=== PATIENT | female | born 1980 | race Caucasian/White ===

== ENCOUNTER 2020-10-17 08:11 | Outpatient (REF) | payer BC, SELFPAY ==
[2020-10-18 10:47] LABS: BV Int Neg Control Negative (Negative); BV Int Pos Control Positive (Positive)
[2020-10-19 17:00] LABS: HPV mRNA E6/E7 rflx Not Detected (Not Detected)
== END 2020-10-17 08:12 | disposition home or self-care (01) ==
LOC: HO.LAB 08:11
PROVIDERS: Visit Provider Advanced Practice Midwife
DX: Z01.411 Encounter for gynecological examination (general) (routine) with abnormal findings (principal); Z11.51 Encounter for screening for human papillomavirus (HPV); N89.8 Other specified noninflammatory disorders of vagina; N84.1 Polyp of cervix uteri
CPT/HCPCS: 87480; 87510; 87624; 87660; 88142

== ENCOUNTER 2021-01-11 07:59 | Outpatient (REF) | payer BC, SELFPAY ==
[2021-01-12 09:06] LABS: BV Int Neg Control Negative (Negative); BV Int Pos Control Positive (Positive)
== END 2021-01-11 08:00 | disposition home or self-care (01) ==
LOC: HO.LAB 07:59
PROVIDERS: Visit Provider Advanced Practice Midwife
DX: N89.8 Other specified noninflammatory disorders of vagina (principal)
CPT/HCPCS: 87480; 87510; 87660

== ENCOUNTER 2022-01-26 11:00 | Outpatient (REF) | payer BC, SELFPAY ==
[2022-01-27 15:00] LABS: BV Int Neg Control Negative (Negative); BV Int Pos Control Positive (Positive)
[2022-01-28 05:23] LABS: Follicle Stimulating Hormone 2.7 mIU/mL
== END 2022-01-26 11:01 | disposition home or self-care (01) ==
LOC: HO.LAB 11:00
PROVIDERS: Visit Provider Advanced Practice Midwife
DX: R23.2 Flushing (principal); N89.8 Other specified noninflammatory disorders of vagina
CPT/HCPCS: 36415; 83001; 87480; 87510; 87660

== ENCOUNTER 2022-02-13 15:10 | Outpatient (REF) | payer BC, SELFPAY ==
--- NOTE | ~2022-02-13 | MM_ITS ---
EXAMINATION: MM SCREENING DIGITAL BREAST TOMOSYNTHESIS, BILATERAL CLINICAL INFORMATION: Screening. Asymptomatic. No prior breast imaging. Age 41. No known family history breast cancer. The lifetime risk of breast cancer based on the Tyrer-Cuzick Model is 9%. COMPARISON: None (current study represents initial baseline exam). TECHNIQUE: Digital breast tomosynthesis is performed in both the craniocaudal and mediolateral oblique views along with computer-aided detection (CAD). Synthesized 2D images are generated from the tomosynthesis. FINDINGS: There are scattered areas of fibroglandular density (ACR BI-RADS breast composition Category b). There are no significant masses, abnormal calcifications, or other abnormalities. No architectural abnormality. The axilla and skin contours are unremarkable. MM/MM tomosynthesis screening BI IMPRESSION: No mammographic evidence of malignancy. ASSESSMENT: BI-RADS 1: Negative RECOMMENDATION: Routine annual mammography screening. This patient's information was entered into a reminder system with a target due date for their next mammogram.
== END 2022-02-13 15:11 | disposition home or self-care (01) ==
LOC: HO.MAMMO 15:10
PROVIDERS: PCP Nurse Practitioner Acute Care; Visit Provider Advanced Practice Midwife
DX: Z12.31 Encounter for screening mammogram for malignant neoplasm of breast (principal)
CPT/HCPCS: 77063; 77067

== ENCOUNTER → 2022-03-22 08:29 | Outpatient (BNVA) | payer BC, SELFPAY | PROVIDERS: PCP Nurse Practitioner Acute Care; Visit Provider Advanced Practice Midwife | DX: N84.1 Polyp of cervix uteri (principal); Z53.09 Procedure and treatment not carried out because of other contraindication; Z30.430 Encounter for insertion of intrauterine contraceptive device | CPT/HCPCS: 57500; 58300; 58301; J7296 ==

== ENCOUNTER 2022-04-25 08:58 | Outpatient (REF) | payer BC, SELFPAY | END 2022-04-25 08:59 | disposition home or self-care (01) | LOC: HO.LAB 08:58 | PROVIDERS: PCP Nurse Practitioner Acute Care; Visit Provider Advanced Practice Midwife | DX: N84.1 Polyp of cervix uteri (principal); Z30.431 Encounter for routine checking of intrauterine contraceptive device | CPT/HCPCS: 57500; 88305 ==

== ENCOUNTER 2023-02-18 14:53 | Outpatient (REF) | payer BC, SELFPAY ==
--- NOTE | ~2023-02-18 | MM_ITS ---
EXAMINATION: MM SCREENING DIGITAL BREAST TOMOSYNTHESIS, BILATERAL CLINICAL INFORMATION: Screening. Asymptomatic. COMPARISON: Mammography: This study is compared with prior exams dating back to 2021. TECHNIQUE: Digital breast tomosynthesis is performed in both the craniocaudal and mediolateral oblique views along with computer-aided detection (CAD). Synthesized 2D images are generated from the tomosynthesis. FINDINGS: The breasts are heterogeneously dense, which may obscure small masses (ACR BI-RADS breast composition Category c). There is an asymmetry in the 9:00 position of the right breast in the CC projection and an asymmetry in the deep third of the left breast in the posterior nipple line. Additional mammographic and targeted sonographic imaging of these findings is advised. There are no abnormal calcifications in either breast. MM/MM tomosynthesis screening BI IMPRESSION: Bilateral asymmetries warrant additional mammographic and targeted sonographic evaluation. ASSESSMENT: BI-RADS BI-RADS 0 - Incomplete: Needs additional Imaging. RECOMMENDATION: 1. Additional views of both breasts. 2. Targeted ultrasound if warranted after review of the additional views. 3. Radiology department staff will contact the patient for additional imaging. Additional Imaging required This examination should not preclude the clinical evaluation of a suspicious palpable abnormality. This patient's information was entered into a reminder system with a target due date for their next mammogram.
== END 2023-02-18 14:54 | disposition home or self-care (01) ==
LOC: HO.MAMMO 14:53
PROVIDERS: PCP Nurse Practitioner Acute Care; Visit Provider Advanced Practice Midwife
DX: Z12.31 Encounter for screening mammogram for malignant neoplasm of breast (principal)
CPT/HCPCS: 77063; 77067

== ENCOUNTER → 2023-02-18 15:15 | Outpatient (BNV) | payer BC, SELFPAY | PROVIDERS: PCP Nurse Practitioner Acute Care; Visit Provider Radiology Diagnostic Radiology | DX: Z12.31 Encounter for screening mammogram for malignant neoplasm of breast (principal) | CPT/HCPCS: 77063; 77067 ==

== ENCOUNTER 2023-03-15 10:27 | Outpatient (REF) | payer BC, SELFPAY ==
--- NOTE | ~2023-03-15 | MM_ITS ---
EXAMINATION: MM DIAGNOSTIC DIGITAL BREAST TOMOSYNTHESIS, BILATERAL CLINICAL INFORMATION: Diagnostic for asymmetry in the 9:00 position of the right breast the CC projection, and asymmetry in the deep third of the left breast in the posterior nipple line CC projection. COMPARISON: Mammography: Screening exam 02/18/2023, and dating back to 02/13/2022. TECHNIQUE: Digital breast tomosynthesis is performed. 2D images are generated from the tomosynthesis. The following views are obtained: 3-D spot compression right and left CC views, full-field 3-D left mediolateral view, full-field 3-D right mediolateral view. FINDINGS: The breasts are heterogeneously dense, which may obscure small masses (ACR BI-RADS breast composition Category c). Additional views demonstrate complete effacement of the focal asymmetries in the posterior aspects of both cc views. There is no persistent suspicious mass, clustered calcifications, or architectural distortion in either breast. There are 2 stable small circumscribed isodense nodules in the right breast just above the nipple line and along the nipple line, most likely cysts and stable from 2021. These appear benign. MM/MM tomosynthesis added view BI IMPRESSION: No findings suspicious for malignancy. Effacement of previously questioned asymmetries in both CC views posteriorly. Probable small cysts in the anterior right breast. These are unchanged. ASSESSMENT: BI-RADS BI-RADS 2 - Benign Findings RECOMMENDATION: 1 year F/U Results were provided to the patient at time of visit by the technologist. This patient's information was entered into a reminder system with a target due date for their next mammogram.
== END 2023-03-15 10:28 | disposition home or self-care (01) ==
LOC: HO.MAMMO 10:27
PROVIDERS: PCP Nurse Practitioner Acute Care; Visit Provider Advanced Practice Midwife
DX: N64.89 Other specified disorders of breast (principal)
CPT/HCPCS: 77062; 77066

== ENCOUNTER → 2023-03-15 10:30 | Outpatient (BNV) | payer BC, SELFPAY | PROVIDERS: PCP Nurse Practitioner Acute Care; Visit Provider Radiology Diagnostic Radiology | DX: R92.8 Other abnormal and inconclusive findings on diagnostic imaging of breast (principal) | CPT/HCPCS: 77062; 77066 ==

== ENCOUNTER 2023-07-04 09:00 | Outpatient (AMB) | payer BC, SELFPAY ==
--- NOTE | 2023-07-04 09:01 | MHC.OFFVIS ---
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 Doing well with no concerns. She tries to eat healthy and stays active with exercise. Currently is sexually active. No regular menses with the Mirena, report some increased vaginal discharge. STI screening offered; she declined. Adopted no FH. Last pap smear 2020, negative. Mammogram: UTD. Colonoscopy-planned this summer. [facility] Medical History (Updated 07/04/23 @ 09:32 by Joy Moya CNM) Anomaly of cerebellum Family History Unknown Adopted Social History (Updated 07/04/23 @ 09:10 by EYAD Simms) Household Members: Spouse and Children Housing: House Alcohol intake: current Alcohol intake frequency: a few times a month Patient Tobacco Use Status: Never used Tobacco Sexual orientation: Straight/Heterosexual Gender identity: Female Female Reproductive History Menstrual Age of Menarche: 13 control method: progestin IUCD (Kyleena 02/2022) Total pregnancies: 3 Full term: 3 Number of Living Children: 3 Ab spontaneous: 1 Multiple births: 1 Date of last pap smear: 10/17/20 (neg pap and hpv) Date of Mammogram: 03/15/23 (Birad 2) Review of Systems Const All systems reviewed & are unremarkable except as noted in HPI and below Reports as per HPI Eyes Reports no additional complaints ENT Reports no additional complaints Card Reports no additional complaints Resp Reports no additional complaints GI Reports as per HPI and Reports no additional complaints Reports as per HPI Musc Reports no additional complaints Skin/Breast Reports as per HPI Neuro Reports no additional complaints Psych Reports no additional complaints Endo Reports no additional complaints Zhen/Lymph Reports no additional complaints Aller/Immun Reports no additional complaints Physical Exam Vital Signs: Last Vital Signs BP 122/82 07/04/23 09:03 BMI result Body Mass Index 30.0 Const General: cooperative, healthy appearing, no acute distress, well developed and alert Orientation/consciousness: patient oriented x3 HEENT Head: Yes normal to inspection Eyes General: appearance normal, both eyes and all related structures Neck Neck: Yes normal visual inspection Thyroid: Thyroid normal Chest Chest palpation & inspection: normal inspection of the chest and other (no puckering, dimpling, peau de orange, retraction, discharge, masses) Breast/axilla inspection: normal inspection of the breasts Breast/axilla palpation: normal palpation of the breasts Resp Effort & Inspection: normal respiratory effort GI Inspection: Yes normal to inspection Palpation (GI): Soft to palpation Rectal Exam - Female: deferred General: Yes bladder normal to palpation External Female Exam: normal external appearance and normal appearance of the urethra Speculum Exam - Vagina: normal appearance of the vagina, normal palpation and abnormal vaginal discharge (thin) white Speculum Exam - Cervix: normal appearance of the cervix, normal palpation and Other cervical findings present (IUD strings present) Bimanual exam- vagina & uterus: normal bimanual exam, normal palpation, uterine size normal, bladder normal to palpation, normal palpation and non-tender Bimanual Exam- Adnexa, other: no masses Skin Other: dry, flat pink lesion with crusty center right breast at 6:00 General skin exam: no rashes or lesions noted Rashes: no rashes Neuro General: patient oriented x3 Cognition (Neuro): normal cognition Extrem General: Yes normal to inspection Psych Attitude: cooperative Thought process: Normal thought process present Assessment & Plan Assessment & Plan (1) Encounter for well woman exam with routine gynecological exam: Code(s): Z01.419 - Encounter for gynecological examination (general) (routine) without abnormal findings Plan Discussed: Current recommendations for pap smears per ASCCP guidelines. Breast awareness and periodic breast exams. Maintain a healthy lifestyle including a well balanced diet and routine exercise. Advised to see Dermatology, patient to check on her insurance plan for Dermatology options and will call or send a patient portal message for referral if needed. Await BV panel results for treatment plan. Mammogram yearly. Colonoscopy >45, or at risk sooner. Patient verbalizes understanding and agrees to the plan of care. She was given opportunity to ask questions and all questions were answered to the best of my ability. RTO in one year for annual computer aided design drafter examination. This note is constructed using voice recognition software. While every effort has been made to ensure accuracy, fisherman helper errors may have been included. Orders: Orders MM tomosynthesis screening BI Today Z12.31 - Encounter for screening mammogram for malignant neoplasm of breast Bacterial Vaginosis Panel Today N89.8 - Other specified noninflammatory disorders of vagina Coding Level of Care Code Est Pt Prev Care 40-64y(59456) Diagnoses Encounter for well woman exam with routine gynecological exam Z01.419
[2023-07-04 09:03] VITALS: BP 122/82
== END 2023-07-04 09:45 | disposition home or self-care (01) ==
PROVIDERS: PCP Nurse Practitioner Acute Care; Visit Provider Advanced Practice Midwife
DX: Z01.419 Encounter for gynecological examination (general) (routine) without abnormal findings (principal)
CPT/HCPCS: 99396

== ENCOUNTER 2023-07-04 09:00 | Outpatient (REF) | payer BC, SELFPAY ==
[2023-07-05 13:09] LABS: BV Int Neg Control Negative (Negative); BV Int Pos Control Positive (Positive)
== END 2023-07-04 09:01 | disposition home or self-care (01) ==
LOC: HO.LAB 09:00
PROVIDERS: PCP Nurse Practitioner Acute Care; Visit Provider Advanced Practice Midwife
DX: Z01.419 Encounter for gynecological examination (general) (routine) without abnormal findings (principal); N89.8 Other specified noninflammatory disorders of vagina
CPT/HCPCS: 87480; 87510; 87660

== ENCOUNTER 2024-02-19 15:22 | Outpatient (REF) | payer BC, SELFPAY | END 2024-02-19 15:23 | disposition home or self-care (01) | LOC: HO.MAMMO 15:22 | PROVIDERS: PCP Nurse Practitioner Acute Care; Visit Provider Advanced Practice Midwife | DX: Z13.89 Encounter for screening for other disorder (principal) ==

== ENCOUNTER 2024-02-25 10:14 | Outpatient (REF) | payer BC, SELFPAY ==
--- NOTE | ~2024-02-25 | MM_ITS ---
EXAMINATION: MM SCREENING DIGITAL BREAST TOMOSYNTHESIS, BILATERAL CLINICAL INFORMATION: Screening. Asymptomatic. COMPARISON: Mammography: Comparison is made with available priors TECHNIQUE: Digital breast mammography with tomosynthesis is performed in both the craniocaudal and mediolateral oblique views along with computer-aided detection (CAD). FINDINGS: The breasts are heterogeneously dense, which may obscure small masses (ACR BI-RADS breast composition Category c). Bilateral circumscribed oval masses which wax and wane consistent with benign fibrocystic changes. There are no significant masses, abnormal calcifications, or other abnormalities. MM/MM tomosynthesis screening BI IMPRESSION: No mammographic evidence of malignancy. ASSESSMENT: BI-RADS BI-RADS 2 - Benign Findings RECOMMENDATION: Routine annual mammography screening. 1 year F/U This examination should not preclude the clinical evaluation of a suspicious palpable abnormality. This patient's information was entered into a reminder system with a target due date for their next mammogram. Electronically signed by: Davina Henderson DO 03/02/2024 05:25 PM [facility]
== END 2024-02-25 10:15 | disposition home or self-care (01) ==
LOC: HO.MAMMO 10:14
PROVIDERS: PCP Nurse Practitioner Acute Care; Visit Provider Advanced Practice Midwife
DX: Z12.31 Encounter for screening mammogram for malignant neoplasm of breast (principal)
CPT/HCPCS: 77063; 77067

== ENCOUNTER → 2024-02-25 10:45 | Outpatient (BNV) | payer BC, SELFPAY | PROVIDERS: PCP Nurse Practitioner Acute Care; Visit Provider Internal Medicine | DX: Z12.31 Encounter for screening mammogram for malignant neoplasm of breast (principal) | CPT/HCPCS: 77063; 77067 ==

== ENCOUNTER 2024-07-09 12:29 | Outpatient (REF) | payer BC, SELFPAY ==
--- NOTE | ~2024-07-09 | US_ITS ---
EXAMINATION: US DIAGNOSTIC ULTRASOUND BREAST, RIGHTaxilla CLINICAL INFORMATION: Right axilla palpable lump. COMPARISON: Comparison is made with relevant prior imaging. TECHNIQUE: Ultrasound of the breast is performed with real-time pagan scale imaging and color Doppler. FINDINGS: Targeted color doppler ultrasound scanning in the area of the palpable lump in the right axilla demonstrates normal axillary tissue. There is no focal suspicious finding. There is normal fibroglandular breast tissue. No sonographic abnormality seen. Results are discussed with the patient at time of visit. US/US breast RT limited mamm only IMPRESSION: No sonographic abnormality to account for the right axillary palpable lump. Recommend clinical evaluation follow-up. ASSESSMENT: BI-RADS 1: Negative RECOMMENDATION: Clinical evaluation follow-up This patient's information was entered into a reminder system with a target due date for their next mammogram. Electronically signed by: Davina Henderson DO 07/09/2024 02:33 PM EDT
--- OUTSIDE RECORDS SUMMARY | 2024-07-09 15:14 | XMS_ITS | Clinical Summary ---
Author Organization [facility] Address [address] [place] [address] Care Team Providers Care Engineering And Operations Director Name Role Noxious Weeds And Pest InspectorConnor MD Primary Care Provider [phone] Social History Tobacco Use Types Packs/Day Years Used Date Smoking Tobacco: Never Smokeless Tobacco: Never Alcohol Use Standard Drinks/Week Comments No 0 (1 standard drink = 0.6 oz pur e alcohol) Comments Unknown Sex and Gender Information Value Date Recorded Sex Assigned at Not on file Legal Sex Female 1:54 AM EST Gender Identity Not on file Sexual Orientation Not on file Obstetrics History Plan of Treatment Health Maintenance Due Date Last Done Comments Breast Cancer Screening 1978 Cervical Cancer Screening: Pap Smear 1999 Hepatitis B Vaccines (2 of 3 - 19+ 3-dose series) 05/29/2004 05/01/2004 Colorectal Cancer Screening: Colonoscopy 04/28/2023 Depression Screening 04/28/2023 HIV Screening 04/28/2023 Hepatitis C Screening 04/28/2023 Social Influencers of Health Screening 04/28/2023 DTaP,Tdap,and Td Vaccines (2 - Td or Tdap) 11/03/2023 11/02/2013 COVID-19 Vaccine ( season) 2023 Influenza Vaccine (Season Ended) 2024 12/14/2016, 12/27/2014, 01/01/2007, Additional history exists HIB Vaccines Aged Out No longer eligi ble based on patient's age to complete this topic HPV Vaccines Aged Out No longer eligi ble based on patient's age to complete this topic Hepatitis A Vaccines Aged Out No long er eligible based on patient's age to complete this topic IPV Vaccines Aged Out No longer eligi ble based on patient's age to complete this topic MMR Vaccines Aged Out No longer eligi ble based on patient's age to complete this topic Meningococcal ACWY Vaccine Aged Out N o longer eligible based on patient's age to complete this topic Meningococcal B Vaccine Aged Out No l onger eligible based on patient's age to complete this topic Pneumococcal Vaccine: Pediatrics (0 to 5 Years) and At-Risk Patients (6 to 64 Years) Aged Out No longer eligible based on patient's age to complete this topic RSV Immunization Patients Under 20 months Aged Out No longer eligible based on patient's age to complete this topic Varicella Vaccines Aged Out No longer eligible based on patient's age to complete this topic Care Teams Engineering And Operations Director Relationship Specialty Start Date End Date Connor Garcia MD PCP - General 01/17/04
--- OUTSIDE RECORDS SUMMARY | 2024-07-09 15:14 | XMS_ITS | Encounter Summary ---
Author Organization [facility] Address [address] [place] [address] Care Team Providers Care Manager Cost Name Role Phone Fior Vera NATHANAEL Primary Care Provider [phone] Fior Vera NATHANAEL Unavailable [phone] Fior Vera NATHANAEL Unavailable [phone] Encounter Details Date Type Department Care Team (Late st Contact Info) Description 07/27/2023 Telephone [facility] [address] [place] [address] Shimon Booth PA-C [address] [place] [address] Social History Tobacco Use Types Packs/Day Years Used Date Smoking Tobacco: Never Smokeless Tobacco: Never Alcohol Use Standard Drinks/Week Comments Yes 1 (1 standard drink = 0.6 oz pur e alcohol) social AHC Utilities Answer Date Recorded In the past 12 months has [employer], [employer], oil, or water giftee threatened to shut off services in your home? No 05/29/2023 Social Connection and Isolat ion Panel [NHANES] Answer Date Recorded In a typical week, how many times do you talk on the phone with family, friends, or neighbors? More than three times a week 05/29/2023 How often do you get togethe r with friends or relatives? Three times a week 05/29/2023 How often do you attend [facility] or confucianist services? 1 to 4 times per year 05/29/2023 Do you belong to any clubs o r organizations such as protestant groups, unions, fraternal or athletic groups, or school groups? No 05/29/2023 How often do you attend meet ings of the clubs or organizations you belong to? Never 05/29/2023 Are you , , di vorced, , never , or living with a partner? 05/29/2023 AUDIT-C Answer Date Recorded Q1: How often do you have a drink containing alc ohol? 2-4 times a month 05/29/2023 Q2: How many drinks containi ng alcohol do you have on a typical day when you are drinking? 1 or 2 05/29/2023 Q3: How often do you have si x or more drinks on one occasion? Never 05/29/2023 Overall Financial Resource Strain (CARDIA) Answe r Date Recorded How hard is it for you to pa y for the very basics like food, housing, medical care, and heating? Not hard at all 05/29/2023 PHQ-2 Answer Date Recorded PHQ-2 Total Score 0 06/03/2023 [facility] - Occupational Stress Questionnaire Answer Date Recorded Do you feel stress - tense, restless, nervous, or anxious, or unable to sleep at night because your mind is troubled all the time - these days? Only a little 05/29/2023 Hunger Vital Sign Answer Date Recorded Within the past 12 months, y ou worried that your food would run out before you got the money to buy more. Never true 05/29/19 24 Within the past 12 months, t he food you bought just didn't last and you didn't have money to get more. Never true 05/29/2023 PRAPARE - Transportation Answer Date Re corded In the past 12 months, has l ack of transportation kept you from medical appointments or from getting medications? No 08/2023 In the past 12 months, has l ack of transportation kept you from meetings, work, or from getting things needed for daily living? No 05/29/2023 Physical Activity Answer Date Recorded On average, how many days pe r week do you engage in moderate to strenuous exercise (like a brisk walk)? 3 05/29/2023 On average, how many minutes do you exercise per day at this level? 40 05/29/2023 Education Answer Date Recorded What is the highest level of school you have completed or the highest degree you have received? Bachelor's degree (e.g., BA, AB, BS) 05/29/2023 Comments No Sex and Gender Information Value Date Recorded Sex Assigned at Female 12/11/2022 6:33 PM EDT Legal Sex Female 9:14 AM EDT Gender Identity Female 05/16/2020 1:42 PM EST Sexual Orientation Heterosexual (straight) 05/16 1:42 PM EST documented as of this encounter Plan of Treatment Upcoming Encounters Date Type Department Care Team (Late st Contact Info) Description 06/07/2025 8:00 AM EDT Office Visit [facility] [address] [place] [id number] Fior Vera APRN [address] [facility] [address] [place] [address] documented as of this encounter Visit Diagnoses Not on filedocumented in this encounter Care Teams Manager Cost Relationship Specialty Start Date End Date Fior Vera, NATHANAEL [address] [facility] [address] [place] [address] PCP - General Family Medicine 03/11/20 Fior Vera, NATHANAEL [address] [facility] [address] [place] [address] PCP - [facility] Attributed 07/24/23 02/22/24 Fior Vera APRN [address] [facility] [address] [place] [address] PCP - [facility] Attributed 03/25/24 documented as of this encounter
--- OUTSIDE RECORDS SUMMARY | 2024-07-09 15:14 | XMS_ITS | Encounter Summary ---
Author Organization [facility] Address [address] [place] [address] Care Team Providers Care Plc Programmer Name Role Phone Fior Vera APRN Primary Care Provider Cristina Chapman GARAGE CONSTRUCTION EQUIPMENT MECHANIC Unavailable [phone] Fior Vera Nelsy GARAGE CONSTRUCTION EQUIPMENT MECHANIC Unavailable Fior Vera GARAGE CONSTRUCTION EQUIPMENT MECHANIC Unavailable Reason for Visit * Reason Onset Date Comments Medication Refill 06/06/2023 Encounter Details Date Type Department Care Team (Late st Contact Info) Description 06/06/[address] [place] [address] [facility]NATHANAEL [facility] [address] [place], [place] [id number] Dyslipidemia Social History Tobacco Use Types Packs/Day Years Used Date Smoking Tobacco: Never Smokeless Tobacco: Never Alcohol Use Standard Drinks/Week Comments Yes 1 (1 standard drink = 0.6 oz pur e alcohol) social [facility]HC Utilities Answer Date Recorded In the past 12 months has [employer], gas, oil, or water company threatened to shut off services in your [...] week 05/29/2023 How often do you attend chur ch or rastafarian services? 1 to 4 times per year 05/29/2023 Do you belong to any clubs o r organizations such as hoahaoism groups, unions, fraternal or athletic groups, or [...] Date Recorded PHQ-2 Total Score 0 06/03/2023 [facility] - Occupational Stress Questionnaire Answer Date Recorded [...] Description 06/07/2025 8:00 AM EDT Office Visit [address] [address] Fior Vera APRN [address] [place] [id number] documented as of this encounter Visit Diagnoses Diagnosis Dyslipidemia Other and unspecified hyperlipidemia documented in this encounter Care Teams Plc Programmer Relationship Specialty Start Date End Date Fior Vera APRN [address] [address] PCP - General Family Medicine 03/11/20 Cristina Chapman APRN [address] [place] [address] PCP - [facility] [employer] Attributed 12/23/22 06/23/23 Fior Vera APRN [address] [address] PCP - [facility] [employer] Attributed 07/24/23 02/22/24 Fior Vera APRN [address] [facility] [address] [place] [address] PCP - [facility] Attributed 03/25/24 documented as of this encounter
--- OUTSIDE RECORDS SUMMARY | 2024-07-09 15:14 | XMS_ITS | Clinical Summary ---
Author Organization [facility] Address [address] [place] [address] Care Team Providers Care Histologist Technologist Name Role Phone Unavailable Primary Care Provider Unavailabl e Allergies Active Allergy Reactions Criticality Noted Date Comments Metronidazole 11/29/2019 Nuts 11/29/2019 Penicillins 11/29/2019 Medications Medication Sig Dispensed Refills Start Date End Date Status acetaminophen (TYLENOL) 325 MG tablet Take 2 tablets (650 mg total) by mouth every 6 (six) hours as needed for pain. 120 tablet 0 03/07/2020 Active ibuprofen (ADVIL,MOTRIN) 200 MG tablet Take 4 tablets (800 mg total) by mouth every 6 (six) hours as needed for pain. 30 tablet 0 03/07/2020 Active butalbital-acetamino phen-caffeine 50-325-40 MG per tablet Take 1 tablet by mouth every 4 (four) hours as needed for pain. 10 tablet 0 07/26/2022 Active Active Problems No known active problems Social History Tobacco Use Types Packs/Day Years Used Date Smoking Tobacco: Never Smokeless Tobacco: Never Alcohol Use Standard Drinks/Week Comments No 0 (1 standard drink = 0.6 oz pur e alcohol) Sex and Gender Information Value Date Recorded Sex Assigned at Female 11/29/2019 5:03 PM EDT Gender Identity Female 11/29/2019 5:03 PM EDT Sexual Orientation Not on file Job Start Date Occupation Industry Not on file Not on file Not on file Last Filed Vital Signs Vital Sign Reading Time Taken Comments Blood Pressure 146/86 07/26/2022 9:38 PM EDT Pulse 101 07/26/2022 9:38 PM EDT Temperature 36.7 ??C (98.1 ??F) 07/26/2022 9:38 PM ED T Respiratory Rate 20 07/26/2022 9:38 PM EDT Oxygen Saturation 99% 07/26/2022 9:38 PM EDT Inhaled Oxygen Concentration - - Weight 81.6 kg (180 lb) 07/26/2022 9:38 PM EDT Height 162.6 cm (5' 4 ) 07/26/2022 9:38 PM EDT Body Mass Index 30.9 07/26/2022 9:38 PM EDT Plan of Treatment Health Maintenance Due Date Last Done Comments Hepatitis C Screening 1978 COVID-19 Vaccine (#1) 1978 Depression Screening 1990 BMI Counseling 1996 Preventative Health Evaluation 1996 Cervical Cancer Screening (Pap Smear) 1999 Hepatitis B Vaccines (2 of 2 - CpG 2-dose series) 05/29/2004 05/01/2004, 05/01/2004 Colon Cancer Screening (Colonoscopy) 2023 DTap / Tdap / Td (3 - Td or Tdap) 11/03/2023 11/02/2013, 05/01/2004 Influenza Vaccine (#1) 2023 0, 12/28/2018, 01/09/2018, Additional history exists Pneumococcal Vaccine Aged Out No long er eligible based on patient's age to complete this topic RSV Ped < 20 months Aged Out No longe r eligible based on patient's age to complete this topic
--- OUTSIDE RECORDS SUMMARY | 2024-07-09 15:14 | XMS_ITS | Encounter Summary ---
Author Organization [facility] Address [address] [place] [address] Care Team Providers Care Wafer Production Worker Name Role Phone ChyuFior NATHANAEL Primary Care Provider [phone] Cristina Chapman WATERSHED PROGRAM MANAGER Unavailable [phone] Fior Vera WATERSHED PROGRAM MANAGER Unavailable [phone] Fior Vera WATERSHED PROGRAM MANAGER Unavailable [phone] Encounter Details Date Type Department Care Team (Late st Contact Info) Description 06/03/2023 Scanned Document [address] [place] [address] Primary Care, Scan Social History Tobacco Use Types Packs/Day Years Used Date Smoking Tobacco: Never Smokeless Tobacco: Never Alcohol Use Standard Drinks/Week Comments Yes 1 (1 standard drink = 0.6 oz pur e alcohol) social AHC Utilities Answer Date Recorded In the past 12 months has [employer] gas, oil, or water company threatened to [...] 05/29/2023 How often do you attend chur or jehovah's witness services? 1 to 4 times per year 05/29/2023 Do you belong to any clubs o r organizations such as mandaen groups, unions, fraternal or athletic groups, or [...] Date Recorded PHQ-2 Total Score 0 06/03/2023 [facility] - Occupational Stress Questionnaire Answer Date [...] PM EST documented as of this encounter Functional Status * Question Answer Date of Assessment Author Feeling nervous, anxious, or on edge 0 06/03/2023 10:33 AM EDT Tonya Mcintosh MA Not being able to stop or control worrying 0 06/03/2023 10:33 AM ADAMT Tonya Mcintosh MA Worrying too much about different things 0 06/03/2023 10:33 AM EDT Tonya Mcintosh MA Trouble relaxing 0 06/03/2023 10:33 AM EDT Raquel Mcintosh MA Being so restless that it is hard to sit still 0 06/03/2023 10:33 AM EDT Tonya Mcintosh MA Becoming easily annoyed or irritable 1 06/03/2023 10:33 AM Tonya Millard MA Feeling afraid as if somethi ng awful might happen 0 06/03/2023 10:33 AM ADAMT Tonya Mcintosh MA * Over the past 2 weeks, how often have you been bothered by any of the following problems? Question Answer Date of Assessment Author Patient Health Questionnaire -2 Score 0 06/03/2023 10:33 AM EDTonya De Anda MA * Question Answer Date of Assessment Author Patient Health Questionnaire -9 Score 2 06/03/2023 10:33 AM Tonya Millard MA * Over the last 2 weeks, how often have you been bothered by any of the following problems? Question Answer Date of Assessment Author AVI-7 Total Score 1 06/03/2023 10:33 AM Raquel Millard MA * Question Answer Date of Assessment Author Little interest or pleasure in doing things Not at all 06/03/2023 10:33 AM EDT Raquel Mcintosh MA Feeling down, depressed, or hopeless Not at all 06/03/2023 10:33 AM Raquel Millard MA Trouble falling or staying asleep, or sleeping too much Several days 06/03/2023 10:33 AM Raquel Millard MA Feeling tired or having little energy Several days 06/03/2023 10:33 AM Raquel Millard MA Poor appetite or overeating Not at all 06/03/2023 10:33 AM ADAMT Raquel Mcintosh MA Feeling bad about yourself - or that you are a failure or have let yourself or your family down Not at all 06/03/2023 10:33 AM Raquel Millard MA Trouble concentrating on things, such as reading the newspaper or watching television Not at all 06/03/2023 10:33 AM Raquel Millard MA Moving or speaking so slowly that other people could have noticed? Or the opposite - being so fidgety or restless that you have been moving around a lot more than usual. Not at all 06/03/2023 10:33 AM Raquel Millard MA Thoughts that you would be better off or hurting yourself in some way Not at all 06/03/2023 10:33 AM Raquel Millard MA How difficult have these problems made it for you to do your work, take care of things at home, or get along with other people? Not difficult at all 06/03/2023 10:33 AM Raquel Millard MA documented as of this encounter Plan of Treatment Upcoming Encounters Date Type Department Care Team (Late st Contact Info) Description 06/07/2025 8:00 AM EDT Office Visit [address] [place] [address] Fior Vera APRN [address] [place] [address] documented as of this encounter Visit Diagnoses Not on filedocumented in this encounter Care Teams Wafer Production Worker Relationship Specialty Start Date End Date Fior Vera APRN [address] [address] PCP - General Family Medicine 03/11/20 Cristina Chapman APRN [address] [place] [address] PCP - [place] [employer] Attributed 12/23/22 06/23/23 Fior Vera APRN [address] [address] PCP - [place] [employer] Attributed 07/24/23 02/22/24 Fior Vera APRN [address] [address] PCP - [place] [employer] Attributed 03/25/24 documented as of this encounter
--- OUTSIDE RECORDS SUMMARY | 2024-07-09 15:14 | XMS_ITS ---
Author Name [facility] Organization Unknown Results Test Name/Text Value Interpretation Date Range Source TSH SerPl-aCnc 2.45mIU/L Normal [id number] QU EST BUN/Creat SerPl SEE NOTE: Normal [id number] 6 - 22 Q [facility] Glucose SerPl-mCnc 98mg/dL Normal [id number] 65 - 99 [facility] Calcium SerPl-mCnc 8.9mg/dL Normal [id number] 8.6 - 10 .2 [facility] Creat SerPl-mCnc 0.89mg/dL Normal [id number] 0.5 - 0.99 [facility] eGFRcr SerPlBld CKD-EPI 2020 81mL/min/1.73m2 Normal [id number] - [facility] CO2 SerPl-sCnc 26mmol/L Normal [id number] 20 - 32 QU EST BUN SerPl-mCnc 11mg/dL Normal [id number] 7 - 25 QU EST Sodium SerPl-sCnc 137mmol/L Normal [id number] 135 - 146 [facility] Chloride SerPl-sCnc 104mmol/L Normal [id number] 98 - 11 0 [facility] Potassium SerPl-sCnc 4.4mmol/L Normal [id number] 3.5 - 5.3 [facility] MCHC RBC Auto-EntMCnc 33.3g/dL Normal [id number] 32 - 36 [facility] RBC # Bld Auto 5.03Million/uL Normal [id number] 3.8 - 5 .1 [facility] MCH RBC Qn Auto 29.2pg Normal [id number] 27 - 33 Q [facility] RBC Auto 87.7fL Normal [id number] 80 - 100 [facility] Platelet # Bld Auto 305Thousand/uL Normal [id number] 14 0 - 400 [facility] Hct VFr Bld Auto 44.1% Normal [id number] 35 - 45 [facility] WBC # Bld Auto 4Thousand/uL Normal [id number] 3.8 - 10. 8 [facility] Hgb Bld-mCnc 14.7g/dL Normal [id number] 11.7 - 15.5 QU EST RDW RBC Auto 12.4% Normal [id number] 11 - 15 [facility] T PMV Bld Wilson-Elana 11.3fL Normal [id number] 7.5 - 12 .5 [facility] AST SerPl-cCnc 10U/L Normal [id number] 10 - 35 QU EST ALT SerPl-cCnc 9U/L Normal [id number] 6 - 29 QU EST HbA1c MFr Bld 5.1%oftotalHgb Normal [id number] - 5.7 [facility] Est. average glucose Bld gHb Est-sCnc 5.5mmol/L Normal [id number] [facility] Est. average glucose Bld gHb Est-mCnc 100mg/dL Normal [id number] [facility] History of Medication Use Medication Directions Dispensed Refills Start Date End Date Stat Cholecalciferol (VITAMIN D-3 PO) Take by mouth. acti ve clotrimazole-betametha sone (LOTRISONE) cream Apply topically 2 (two) times a day. 06/03/2024 active tiZANidine (ZANAFLEX) 2 MG tablet Take 1 tablet (2 mg total) by mouth 3 (three) times a day. 01/15/2023 04/16/2023 active butalbital-acetaminoph en-caffeine (FioriCET, ESGIC) 50-325-40 mg tablet Take 1 tablet by mouth 4 times daily (every 6 hours) as needed for headaches. Max: 6 capsules/tablets in 24 hours 07/26/2022 09/03/2023 active indomethacin (INDOCIN) 50 MG capsule Take 1 capsule as needed, with food; limit to no more than 2-3 days per week 12/13/2022 12/28/2022 aborted naproxen sodium (ANAPROX) 550 MG tablet Take 1 tablet (550 mg total) by mouth 2 (two) times a day with meals. Take with meals or food to reduce stomach upset. 11/19/2022 12/03/2022 active niacin (VITAMIN B-3) 250 MG CR capsule 750 mg. 06/28/2023 active naratriptan (AMERGE) 2.5 MG tablet Take 1 tablet (2.5 mg total) by mouth 2 (two) times a day. 10/31/2022 11/06/2022 aborted ondansetron (ZOFRAN-ODT) 4 MG disintegrating tablet Take 1 tablet (4 mg total) by mouth 2 times daily (every 12 hours) as needed for nausea or vomiting. Place tablet on tongue to dissolve. 10/31/2022 active Problems Problem Status Onset Date Problem Type Date of Resoluti on Source Cervical disc herniation active 2023-01-14 [facility] Hypercholesteremia active 2024-06-03 ProblemAct [facility] Occipital neuralgia of left side active 2023-01-14 ProblemAct [facility] Cervical spondylosis active 2023-01-14 ProblemAct [facility] New onset of headaches active 2022-09-02 ProblemAct [facility] Immunizations Vaccine Date Source Lot Number Status Hepatitis B Adjuvanted, 2 Dose 05/01/2004 [facility] completed DT 05/01/2004 [facility] completed Influenza, Unspecified 12/08/2019 [facility] co mpleted Influenza, Unspecified 12/27/2014 [facility] co mpleted Influenza, Unspecified 12/14/2016 [facility] co mpleted Tdap 11/02/2013 [facility] [id number] completed Influenza, Unspecified 01/10/2005 [facility] co mpleted Tdap 06/03/2024 [facility] [id number] completed Influenza, Unspecified 01/01/2007 [facility] [id number] co mpleted Influenza Inactivated/Split Preservative Free IM 12/28/2018 [facility] completed Influenza Inactivated/Split Preservative Free IM 01/09/2018 [facility] completed Influenza Inactivated/Split Preservative Free IM 12/20/2019 [facility] completed Encounters Encounter Type Encounter Reason Primary Diagnosis Location Date Ambulatory Annual Exam Annual Exam [facility] 06/03/2024 Ambulatory Unspecified symptoms and signs involving the genitourinary system Unspecified symptoms and signs involving the genitourinary system [facility] 11/26/2023 Ambulatory [facility] 09/20/2023 Ambulatory Periorbital cellulitis Periorbital cellulitis [facility] 07/24/2023 Ambulatory Hyperlipidemia, unspecified Hyperlipidemia, unspecified [facility] 06/03/2023 Ambulatory Periorbital cellulitis Periorbital cellulitis [facility] 04/08/2023 Ambulatory Cervicalgia Cervicalgia [facility] 02/20/2023 Ambulatory Spondylosis without myelopathy or radiculopathy, 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, cervical region [facility] 01/14/2023 Ambulatory Headache, unspecified Headache, unspecified [facility] 12/13/2022 Ambulatory Headache, unspecified Headache, unspecified [facility] 10/31/2022 Ambulatory Headache, unspecified [facility] 08/30/2022 Ambulatory Personal history of other diseases of the nervous system and sense organs [facility] 07/30/2022 Ambulatory Pure hypercholesterolemia , unspecified [facility] 05/30/2022 Care Team Organization Name Specialty Phone Email Start Date End [facility] te [facility] 09/19/2023 [facility] 09/19/2023 [facility] 01/24/2023 024 [facility] Fior Vera [facility] 05/30/2022 07/08/2024 [facility] Fior Vera NP Primary Care 04/12/2021 023
--- OUTSIDE RECORDS SUMMARY | 2024-07-09 15:14 | XMS_ITS | Encounter Summary ---
Author Organization [facility] Address [address] [place] [address] Care Team Providers Care Public Health Physician Name Role Phone ChuyFior NATHANAEL Primary Care Provider [phone] Cristina Chapman HIGH SCHOOL SPECIAL EDUCATION TEACHER Unavailable [phone] Fior Vera HIGH SCHOOL SPECIAL EDUCATION TEACHER Unavailable [phone] Fior Vera HIGH SCHOOL SPECIAL EDUCATION TEACHER Unavailable [phone] Encounter Details Date Type Department Care Team (Late st Contact Info) Description 06/03/2023 Scanned Document [address] [place] [phone] Primary Care, Scan Social History Tobacco Use Types Packs/Day Years Used Date Smoking Tobacco: Never Smokeless Tobacco: Never Alcohol Use Standard Drinks/Week Comments Yes 1 (1 standard drink = 0.6 oz pur e alcohol) social AHC Utilities Answer Date Recorded In the past 12 months has [employer], gas, oil, or water company threatened to [...] How often do you attend chur or roman catholic services? 1 to 4 times per year 05/29/2023 Do you belong to any clubs o r organizations such as caodaism groups, unions, fraternal or athletic groups, or [...] Date Recorded PHQ-2 Total Score 0 06/03/2023 [facility] - Occupational Stress Questionnaire Answer Date Recorded [...] Description 06/07/2025 8:00 AM EDT Office Visit [address] [place] [address] Fior Vera APRN [address] [place] [address] documented as of this encounter Visit Diagnoses Not on filedocumented in this encounter Care Teams Public Health Physician Relationship Specialty Start Date End Date Fior Vera APRN [address] [address] PCP - General Family Medicine 03/11/20 Cristina Chapman APRN [address] [place] [address] PCP - [place] Commercial Attributed 12/23/22 06/23/23 Fior Vera APRN [address] [address] PCP - [place] [employer] Attributed 07/24/23 02/22/24 Fior Vera APRN [address] [address] PCP - [place] [employer] Attributed 03/25/24 documented as of this encounter
--- OUTSIDE RECORDS SUMMARY | 2024-07-09 15:14 | XMS_ITS | Encounter Summary ---
Author Organization [facility] Address [address] [place] [address] Care Team Providers Care Internal Affairs Investigator Name Role Phone ChuyFior NATHANAEL Primary Care Provider [phone] Fior Vera NATHANAEL Unavailable [phone] Fior Vera NATHANAEL Unavailable [phone] Encounter Details Date Type Department Care Team (Late st Contact Info) Description 11/26/2023 Scanned Document [address] [place] [address] Provider, Generic Social History Tobacco Use Types Packs/Day Years Used Date Smoking Tobacco: Never Smokeless Tobacco: Never Alcohol Use Standard Drinks/Week Comments Yes 1 (1 standard drink = 0.6 oz pur e alcohol) social C Utilities Answer Date Recorded In the past 12 months has [employer], gas, oil, or water company threatened [...] often do you attend chur ch or catholic services? 1 to 4 times per year 05/29/2023 Do you belong to any clubs o r organizations such as zoroastrianism groups, unions, fraternal or athletic groups, or [...] Date Recorded PHQ-2 Total Score 0 06/03/2023 [facility]at ional Health - Occupational Stress [...] Description 06/07/2025 8:00 AM EDT Office Visit [facility] [address] [place] [address] Fior Vera APRN [address] [place] [address] documented as of this encounter Visit Diagnoses Not on filedocumented in this encounter Care Teams Internal Affairs Investigator Relationship Specialty Start Date End Date Fior Vera APRN [address] [address] PCP - General Family Medicine 03/11/20 Fior Vera APRN [address] [place] [address], [place] [address] PCP - [place] Commercial Attributed 07/24/23 02/22/24 Fior Vera APRN [address] [address] PCP - [place] Commercial Attributed 03/25/24 documented as of this encounter
--- OUTSIDE RECORDS SUMMARY | 2024-07-09 15:14 | XMS_ITS | Encounter Summary ---
Author Organization [facility] Address [address] [place] [address] Care Team Providers Care Insurance Coordinator Name Role Phone Fior Vera NATHANAEL Primary Care Provider [phone] Fior Vera NATHANAEL Unavailable [phone] Fior Vera NATHANAEL Unavailable [phone] Encounter Details Date Type Department Care Team (Late st Contact Info) Description 09/19/2023 Scanned Document [facility] [address] [place] [address] Neurology, Scan Social History Tobacco Use Types Packs/Day Years Used Date Smoking Tobacco: Never Smokeless Tobacco: Never Alcohol Use Standard Drinks/Week Comments Yes 1 (1 standard drink = 0.6 oz pur e alcohol) social AHC Utilities Answer Date Recorded In the past 12 months has [employer], gas, oil, or water [employer] threatened to shut off services in your [...] often do you attend chur ch or rastafari services? 1 to 4 times per year 05/29/2023 Do you belong to any clubs o r organizations such as presybeterian groups, unions, fraternal or athletic groups, or [...] Date Recorded PHQ-2 Total Score 0 06/03/2023 [facility] Occupat ional Health - Occupational [...] Description 06/07/2025 8:00 AM EDT Office Visit [facility] [address] [place] [address] Fior Vera APRN [address] [address] documented as of this encounter Visit Diagnoses Not on filedocumented in this encounter Care Teams Insurance Coordinator Relationship Specialty Start Date End Date Fior eVra APRN [address] [address] PCP - General Family Medicine 03/11/20 Fior Vera, NATHANAEL [address] [place] [address] PCP - [place] [employer] Attributed 07/24/23 02/22/24 Fior Vera, NATHANAEL [address] [address] PCP - [place] [employer] Attributed 03/25/24 documented as of this encounter
--- OUTSIDE RECORDS SUMMARY | 2024-07-09 15:14 | XMS_ITS | Encounter Summary ---
Author Organization [facility] Address [address] [place] [address] Care Team Providers Care Bran Mixer Name Role Phone [address] Court HouseFior horn NATHANAEL Primary Care Provider Fior Vera COMPRESSOR STATION ENGINEER CHIEF Unavailable [phone] GabykelliCristina Marshal COMPRESSOR STATION ENGINEER CHIEF Unavailable [phone] Fior Vera COMPRESSOR STATION ENGINEER CHIEF Unavailable [phone] Fior Vera COMPRESSOR STATION ENGINEER CHIEF Unavailable [phone] Encounter Details Date Type Department Care Team (Late st Contact Info) Description 11/08/2022 Scanned Document [facility] Neurology, Scan Social History Tobacco Use Types Packs/Day Years Used Date Smoking Tobacco: Never Smokeless Tobacco: Never Alcohol Use Standard Drinks/Week Comments Yes 0 (1 standard drink = 0.6 oz pur e alcohol) social AUDIT-C Answer Date Recorded Frequency of Alcohol Consumption Never 09/28/2018 Average Number of Drinks Not on file 019 Frequency of Binge Drinking Not on file 09/2018 PHQ-2 Answer Date Recorded PHQ-2 Total Score 1 10/31/2022 [facility] of Occupat ional Health - Occupational Stress Questionnaire Answer Date Recorded Do you feel stress - tense, restless, nervous, or anxious, or unable to sleep at night because your mind is troubled all the time - these days? To some extent 10/31/2022 Physical Activity Answer Date Recorded Days of Exercise per Week 3 days 2022 Minutes of Exercise per Session 20 min 10/31/2022 Comments No Sex and Gender Information Value [...] Description 06/07/2025 8:00 AM EDT Office Visit [facility] [address] [place] [address] Fior Vera APRN [address] [place] [address] documented as of this encounter Visit Diagnoses Not on filedocumented in this encounter Care Teams Bran Mixer Relationship Specialty Start Date End Date Fior Vera APRN [address] [address] PCP - General Family Medicine 03/11/20 Fior Vera APRN [address] [place] [address] PCP - [place] Commercial Attributed 07/23/20 12/22/22 Cristina Chapman APRN [address] [place] [id number] PCP - [place] Commercial Attributed 12/23/22 06/23/23 Fior Vera APRN [address] [address] PCP - [place] Commercial Attributed 07/24/23 02/22/24 Fior Vera APRN [address] [address] PCP - [place] Commercial Attributed 03/25/24 documented as of this encounter
--- OUTSIDE RECORDS SUMMARY | 2024-07-09 15:14 | XMS_ITS | Clinical Summary ---
Author Organization Formerly [facility] Address [address] [place] [address] Care Team Providers Care Estimator Paperboard Boxes Name Role Phone Fior Vera APRN Primary Care Provider [phone] Fior Vera APRN Unavailable [phone] Allergies Active Allergy Reactions Criticality Noted Date Comments Atorvastatin Myalgia/Myositis/Art hralgia/Arthri tis Low 07/30/2022 Metronidazole Rash/Dermatitis Low 09/28/2018 Rimegepant Sulfate Hives Medium 12/11/2022 Nuts Anaphylaxis High 09/28/2018 Penicillins Hives Medium 09/28/2018 Triptans Rash/Dermatitis Low 11/05/2022 Medications multivitamin Tab tablet Take 1 tablet by mouth daily. Active ondansetron (ZOFRAN-ODT) 4 MG disintegrating tabletIndications: Nausea Take 1 tablet (4 mg total) by mouth 2 times daily (every 12 hours) as needed for nausea or vomiting. Place tablet on tongue to dissolve. 15 tablet 3 3 Active indomethacin (INDOCIN) 50 MG capsuleIndications :Intractable headache, unspecified chronicity pattern, unspecified headache type Take 1 capsule (50 mg total) by mouth 2 (two) times a day with meals. As needed, no more than 2-3 days per week 30 capsule 3 3 Active tiZANidine (ZANAFLEX) 2 MG tabletIndications: Cervical disc herniation,Muscle spasms of neck Take 1 tablet (2 mg total) by mouth 3 (three) times a day. 270 tablet 3 Active polyethylene glycol-electrolyte s (PLENVU) 140 g solutionIndication s:Colon cancer screening Take as directed. 1 each 4 Active Angle Inlet-3 Fatty Acids (FISH OIL PO) Take by mouth. Active Cholecalciferol (VITAMIN D-3 PO) Take by mouth. Active EPINEPHrine 0.3 mg/0.3 mL IJ auto-injectionIndi cations:History of multiple allergies Inject 0.3 mL (0.3 mg total) into the thigh once as needed for allergic reaction. 2 each 5 Active clotrimazole-betam ethasone (LOTRISONE) creamIndications:M ass of right axilla Apply topically 2 (two) times a day. 45 g 5 Active Active Problems Problem Noted Date Diagnosed Date Hypercholesteremia 06/03/2024 Cervical spondylosis 01/14/2023 Cervical disc herniation 01/14/2023 Occipital neuralgia of left side 01/14/2023 New onset of headaches 09/02/2022 Encounters Date Type Department Care Team Description 06/16/2024 Orders Only [address] [phone] Fior Vera APRN Mass of right axilla (Primary Dx) 06/11/2024 Telephone [facility] [address] [place] [address] Keshai Paulino MA 06/05/2024 Telephone [facility] [address] [place] [address] Keshia Paulino MA Referral 06/03/2024 8:45 AM EDT Office Visit [address] [phone] Fior Vera APRN Mass of right axilla (Primary Dx); Routine medical exam; Hypercholesteremia; Colon cancer screening; Skin lesion; Need for tetanus booster; History of multiple allergies 06/03/2024 Travel from Last 3 Months Immunizations Immunization Administration Dates Next Due DT 05/01/2004 Hepatitis B Adjuvanted, 2 Dose 05/01/2004 Influenza Inactivated/Split Preservative Free IM 12/20/2019,12/28/2018,01/09/2018 Influenza, Unspecified 12/08/2019,2016,12/27/2014,2006,01/10/2005 Tdap 06/03/2024,11/02/2013 Social History Tobacco Use Types Packs/Day Years Used Date Smoking Tobacco: Never Smokeless Tobacco: Never Tobacco Cessation:Counseling Given: Not Answered Alcohol Use Standard Drinks/Week Comments Yes 1 (1 standard drink = 0.6 oz pur e alcohol) social C Utilities Answer Date Recorded In the past 12 months has th e electric, gas, oil, or water [employer] threatened to shut off services in your home? No 06/01/2024 Social Connection and Isolation Panel [NHANES] A nswer Date Recorded In a typical week, how many times do you talk on the phone with family, friends, or neighbors? Three times a week 06/01/2024 Frequency of Social Gatherin gs with Friends and Family Not on file 06/01/2024 Attends Faith Services Not on file 06/01 Active Member of Clubs or Organizations Not on f ile 06/01/2024 Attends Club or Organization Meetings Not on daniel e 06/01/2024 Marital Status Not on file 06/01/2024 AUDIT-C Answer Date Recorded Q1: How often do you have a drink containing alc ohol? Monthly or less 06/01/2024 Q2: How many drinks containi ng alcohol do you have on a typical day when you are drinking? 1 or 2 06/01/2024 Frequency of Binge Drinking Not on file 05/23 Overall Financial Resource Strain (CARDIA) Answe r Date Recorded How hard is it for you to pa y for the very basics like food, housing, medical care, and heating? Not hard at all 05/29/2023 PHQ-2 Answer Date Recorded PHQ-2 Total Score 0 06/01/2024 [facility] [place] of Occupat ional Health - Occupational Stress [...] the money to buy more. Never true 06/02/19 25 Within the past 12 months, t he food you bought just didn't last and you didn't have money to get more. Never true 06/01/2024 PRAPARE - Transportation Answer Date Re corded In the past 12 months, has l ack of transportation kept you from medical appointments or from getting medications? No 05/23 In the past 12 months, has l ack of transportation kept you from meetings, work, or from getting things needed for daily living? No 06/01/2024 Housing Stability Vital Sign Answer Amadou e Recorded In the last 12 months, was t here a time when you were not able to pay the mortgage or rent on time? Patient declined 06/02/19 In the past 12 months, how m any times have you moved where you were living? 0 06/01/2024 At any time in the past [address] [facility], were you homeless or living in a nursing home (including now)? No 06/01/2024 Physical Activity Answer Date Recorded On average, how many days pe r week do you engage in moderate to strenuous exercise (like a brisk walk)? 1 day 06/01/2024 On average, how many minutes do you exercise per day at this level? 20 min 06/01/2024 Education Answer Date Recorded What is the [...] Orientation Heterosexual (straight) 05/16 1:42 PM EST Last Filed Vital Signs Vital Sign Reading Time Taken Comments Blood Pressure 112/80 06/03/2024 8:54 AM EDT Pulse 78 06/03/2024 8:54 AM EDT Temperature 36.3 ??C (97.3 ??F) 06/03/2024 8:54 AM ED T Respiratory Rate 18 06/03/2024 8:54 AM EDT Oxygen Saturation 99% 06/03/2024 8:54 AM EDT Inhaled Oxygen Concentration - - Weight 80.3 kg (177 lb) 06/03/2024 8:54 AM EDT Height 162.6 cm (5' 4 ) 06/03/2024 8:54 AM EDT Body Mass Index 30.38 06/03/2024 8:54 AM EDT Plan of Treatment Upcoming Encounters Date Type Department Care Team (Late st Contact Info) Description 06/07/2025 8:00 AM EDT Office Visit [facility] [address] [place] [address] Fior Vera APRN [address] [place] [address] Health Maintenance Due Date Last Done Comments Hepatitis C Virus Screening 1978 HIV Screening 1991 Pap Smear (Ages 21-65) 1999 Hepatitis B Vaccines (2 of 2 - CpG 2-dose series) 05/29/2004 05/01/2004 Mammogram 2018 Colonoscopy 2023 Influenza Vaccine 10/24/2023 12/20/2019, , 12/28/2018, Additional history exists COVID-19 Vaccine ( season) 2023 07/08/2020, 06/10/2020 Physical 06/03/2026 06/03/2024, 05/23, 05/30/2022 DTaP/Tdap/Td Vaccines (4 - Td or Tdap) 06/03/2034 06/03/2024, 11/02/2013, 05/01/2004 Pneumococcal Vaccine: Pediatric (0-5 Years) and At-Risk Patients (6 to 49 Years) Aged Out No longer eligible based on patient's age to complete this topic Procedures Procedure Name Priority Date/Time Associated Diagnosis Comments AST & ALT Routine 06/15/2024 7:52 AM EDT Hypercholesteremia HEMOGLOBIN A1C WITH ESTIMATED AVERAGE GLUCOSE Routine 06/15/2024 7:52 AM EDT Hypercholesteremia TSH REFLEX TO FREE T4 Routine 06/15/2024 7:52 AM EDT Hypercholesteremia BASIC METABOLIC PANEL Routine 06/15/2024 7:52 AM EDT Hypercholesteremia COMPLETE BLOOD COUNT, WITHOUT DIFFERENTIAL Routine 06/15/2024 7:52 AM EDT Hypercholesteremia from Last 3 Months Results * AST & ALT (06/15/2024 7:52 AM EDT) Aspartate Aminotrans (AST) 10 10 - 35 U/L [facility] Alanine Aminotrans (ALT) 9 6 - 29 U/L [facility] Blood Blood specimen / Unknown 06/15/2024 7:52 AM EDT 06/15/2024 7:53 AM EDT Narrative [facility] - 06/15/2024 11:11 PM EDT FASTING:YES FASTING: YES Fior Nelsy [place] AVIATION SURVIVAL TECHNICIAN LAB BLOOD ORDERABLES Final Re sult [facility] [address] [place] [phone] * TSH REFLEX FREE T4 (06/15/2024 7:52 AM EDT) Pathologist [facility] TSH reflex Free T4 2.45 mIU/L [facility] Comment: ?Reference Range ?> or = 20 Years ??0.40-4.50 ? Ranges ?First trimester ?0.26-2.66 ?Second trimester ?? 0.55-2.73 ?Third trimester ?0.43-2.91 Blood Blood specimen / Unknown 06/15/2024 7:52 AM EDT 06/15/2024 7:53 AM EDT Narrative [facility] - 06/15/2024 11:11 PM EDT FASTING:YES FASTING: YES Fior Vera NATHANAEL LAB BLOOD ORDERABLES Final Re sult Performing Organization Address [facility] de Phone Number [facility] [address] [place] [address] * Hemoglobin A1C with Estimated Average Glucose (06/15/2024 7:52 AM EDT) Pathologist [facility] Hemoglobin A1C 5.1 <5.7 % of total Hgb [facility] Comment: For the purpose of screening for the presence of diabetes: <5.7% ? Consistent with the absence of diabetes 5.7-6.4% ?Consistent with increased risk for diabetes ?(prediabetes) > or =6.5% ??Consistent with diabetes This assay result is consistent with a decreased risk of diabetes. Currently, no consensus exists regarding use of hemoglobin A1c for diagnosis of diabetes in children. According to [place] Diabetes Association (ADA) guidelines, hemoglobin A1c <7.0% represents optimal control in non- diabetic patients. Different metrics may apply to specific patient populations. Standards of Medical Care in Diabetes(ADA). ?? Estimated Average Glucose (mg/dL) 100 mg/dL [facility] Estimated Average Glucose (mmol/L) 5.5 mmol/L [facility] Blood Blood specimen / Unknown 06/15/2024 7:52 AM EDT 06/15/2024 7:53 AM EDT Narrative [facility] - 06/15/2024 11:11 PM EDT FASTING:YES FASTING: YES Fior Vera APRN LAB BLOOD ORDERABLES Final Re sult Performing Organization Address [facility] Co de Phone Number [facility] [address] [place] [address] * Complete Blood Count, without Differential (06/15/2024 7:52 AM EDT) Pathologist [facility] White Blood Cell Count 4.0 3.8 - 10.8 Thousand/u L [facility] Red Blood Cell Count 5.03 3.80 - 5.10 Million/uL [facility] Hemoglobin 14.7 11.7 - 15.5 g/dL [facility] Hematocrit 44.1 35.0 - 45.0 % [facility] MCV 87.7 80.0 - 100.0 fL [facility] MCH 29.2 27.0 - 33.0 pg [facility] MCHC 33.3 32.0 - 36.0 g/dL [facility] Comment: For adults, a slight decrease in the calculated MCHC value (in the range of 30 to 32 g/dL) is most likely not clinically significant; however, it should be interpreted with caution in correlation with other red cell parameters and the patient's clinical condition. RDW 12.4 11.0 - 15.0 % [facility] Platelet Count 305 140 - 400 Thousand/u L [facility] MPV 11.3 7.5 - 12.5 fL [facility] Blood Blood specimen / Unknown 06/15/2024 7:52 AM EDT 06/15/2024 7:53 AM EDT Narrative [facility] 06/15/2024 11:11 PM EDT FASTING:YES FASTING: YES Fior Vera APRN LAB BLOOD ORDERABLES Final Re sult [facility] [address] [place] [address] * BASIC METABOLIC PANEL (06/15/2024 7:52 AM EDT) [facility] Glucose 98 65 - 99 mg/dL [facility] Comment: ? Fasting reference interval Blood Urea Nitrogen (BUN) 11 7 - 25 mg/dL [facility] Creatinine 0.89 0.50 - 0.99 mg/dL [facility] Creatinine w/ eGFR 81 > OR = 60 mL/min/1. 73m2 [facility] BUN/Creatinine Ratio SEE NOTE: (calc) [facility] Comment: ?? Not Reported: BUN and Creatinine are within ?? reference range. ? Sodium 137 135 - 146 mmol/L [facility] Potassium 4.4 3.5 - 5.3 mmol/L [facility] Chloride 104 98 - 110 mmol/L [facility] CO2 26 20 - 32 mmol/L [facility] Calcium 8.9 8.6 - 10.2 mg/dL [facility] Blood Blood specimen / Unknown 06/15/2024 7:52 AM EDT 06/15/2024 7:53 AM EDT Narrative [facility] - 06/15/2024 11:11 PM EDT FASTING:YES FASTING: YES Fior Vera AVIATION SURVIVAL TECHNICIAN LAB BLOOD ORDERABLES Final Re sult Performing Organization Address City/State/[facility] Co de Phone Number [facility] [address] [place] [phone] from Last 3 Months Insurance BLUE CROSS OUT [facility] BLUE CROSS OUT [facility] BLUE CROSS OUT OF [facility] BLUE CROSS OUT OF [facility] BLUE CROSS OUT OF [facility] - [facility] Care Teams Estimator Paperboard Boxes Relationship Specialty Start Date End Date Fior Vera APRN [address] [place] [address] PCP - General Family Medicine 03/11/20 Fior Vera, NATHANAEL [address] [place], [place] [address] PCP - [place] [employer] Attributed 03/25/24
--- OUTSIDE RECORDS SUMMARY | 2024-07-09 15:14 | XMS_ITS | Encounter Summary ---
Author Organization [facility] Address [address] [place] [address] Care Team Providers Care Program Planner Name Role Phone Fior Vera APRN Primary Care Provider Cristina Chapman FOLDER INSPECTOR Unavailable [phone] Fior Vera Nelsy FOLDER INSPECTOR Unavailable Fior Vera Nelsy FOLDER INSPECTOR Unavailable Reason for Visit * Reason Onset Date Comments Medication Refill 05/11/2023 Encounter Details Date Type Department Care Team (Late st Contact Info) Description 05/11/[address] [place] [phone] Fior VeraNATHANAEL 100 [facility] [address] [place], [place] [id number] Dyslipidemia Social History Tobacco Use Types Packs/Day [...] Date Recorded PHQ-2 Total Score 1 10/31/2022 [facility] [place] of Occupat ional Health - Occupational Stress [...] Description 06/07/2025 8:00 AM EDT Office Visit [facility] [address] [address] Fior Vera APRN [address] [address] documented as of this encounter Visit Diagnoses Diagnosis Dyslipidemia Other and unspecified hyperlipidemia documented in this encounter Care Teams Program Planner Relationship Specialty Start Date End Date Fior Vera APRN [address] [address] PCP - General Family Medicine 03/11/20 Cristina Chapman APRN [address] [place] [id number] PCP - [place] Commercial Attributed 12/23/22 06/23/23 Fior Vera APRN [address] [address] PCP - [place] Commercial Attributed 07/24/23 02/22/24 Fior Vera APRN [address] [address] PCP - [place] Commercial Attributed 03/25/24 documented as of this encounter
--- OUTSIDE RECORDS SUMMARY | 2024-07-09 15:14 | XMS_ITS | Encounter Summary ---
Author Organization [facility] Address [address] [place] [address] Care Team Providers Care Bus Aide Name Role Phone [place]raFior horn NATHANAEL Primary Care Provider [phone] Fior Vera MEMORANDUM STATEMENT CLERK Unavailable [phone] GabykelliCristina Marshal MEMORANDUM STATEMENT CLERK Unavailable [phone] Fior Vera MEMORANDUM STATEMENT CLERK Unavailable Fior Vera MEMORANDUM STATEMENT CLERK Unavailable [phone] Encounter Details Date Type Department Care Team (Late st Contact Info) Description 09/14/2022 Scanned Document [facility] [address] [place] [address] Neurosurgery, Scan Social History Tobacco Use Types Packs/Day [...] Answer Date Recorded PHQ-2 Total Score 0 05/29/2022 Comments No Sex and Gender Information Value Date Recorded Sex Assigned at Female 12/11/2022 6:33 PM EDT Legal Sex Female 9:14 AM EDT Gender Identity Female 05/16/2020 1:42 PM EST Sexual Orientation Heterosexual (straight) 05/16 1:42 PM EST COVID-19 Exposure Response Date Recorded In the last 10 days, have yo u been in contact with someone who was confirmed or suspected to have Coronavirus/COVID-19? No / Unsure 08/30/2022 10:33 AM EDT documented as of this encounter Plan of Treatment Upcoming Encounters Date Type Department Care Team (Late st Contact Info) Description 06/07/2025 8:00 AM EDT Office Visit [facility] [place] [address] [place] [address] Fior Vera APRN [address] [place] [address] documented as of this encounter Visit Diagnoses Not on filedocumented in this encounter Care Teams Bus Aide Relationship Specialty Start Date End Date Fior Vera APRN [address] [place] [address] PCP - General Family Medicine 03/11/20 Fior Vera APRN [address] [place] [address] PCP - [place] Commercial Attributed 07/23/20 12/22/22 Cristina Chapman APRN [address] [place] [address] PCP - [place] Commercial Attributed 12/23/22 06/23/23 Fior Vera APRN [address] [place] [address] PCP - [place] [employer] Attributed 07/24/23 02/22/24 Fior Vera APRN [address] [place] [address] PCP - [place] [employer] Attributed 03/25/24 documented as of this encounter
--- OUTSIDE RECORDS SUMMARY | 2024-07-09 15:14 | XMS_ITS | Encounter Summary ---
Author Organization [facility] Address [address] [place] [address] Care Team Providers Care Aluminum Fabrication Supervisor Name Role Phone [place]Fior NATHANAEL Primary Care Provider [phone] Fior Vera NATHANAEL Unavailable [phone] Fior Vera NATHANAEL Unavailable [phone] Encounter Details Date Type Department Care Team (Late st Contact Info) Description 11/26/2023 Scanned Document [address] [place] [phone] Provider, Generic Social History Tobacco Use Types Packs/Day Years Used Date Smoking Tobacco: Never Smokeless Tobacco: Never Alcohol Use Standard Drinks/Week Comments Yes 1 (1 standard drink = 0.6 oz pur e alcohol) social C Utilities Answer Date Recorded In the past 12 months has [employer] electric, gas, oil, or water company threatened [...] often do you attend chur ch or caodaism services? 1 to 4 times per year 05/29/2023 Do you belong to any clubs o r organizations such as sikh groups, unions, fraternal or athletic groups, or [...] Date Recorded PHQ-2 Total Score 0 06/03/2023 [facility] of Occupat ional Health - Occupational Stress [...] Description 06/07/2025 8:00 AM EDT Office Visit [facility] [address] [place] [address] Fior Vera APRN [address] [place] [address] documented as of this encounter Visit Diagnoses Not on filedocumented in this encounter Care Teams Aluminum Fabrication Supervisor Relationship Specialty Start Date End Date Fior Vera APRN [address] [address] PCP - General Family Medicine 03/11/20 Fior Vera APRN [address] [place] [address], [place] [address] PCP - [place] Commercial Attributed 07/24/23 02/22/24 Fior Vera APRN [address] [address] PCP - [place] Commercial Attributed 03/25/24 documented as of this encounter
--- OUTSIDE RECORDS SUMMARY | 2024-07-09 15:14 | XMS_ITS | Encounter Summary ---
Author Organization [facility] Address [address] [place] [address] Care Team Providers Care [employer] Truck Driver Name Role Phone Fior Vera NATHANAEL Primary Care Provider [phone] Fior Vera NATHANAEL Unavailable [phone] Fior Vera NATHANAEL Unavailable Reason for Visit * Reason Comments Med Change Request Encounter Details Date Type Department Care Team (Late st Contact Info) Description 07/24/2023 Refill [facility] [address] [place] [address] Shimon Booth PA-C [address] [place] [address] Acute bacterial conjunctivitis of right eye Social History Tobacco Use Types Packs/Day Years Used Date Smoking Tobacco: Never Smokeless Tobacco: Never Alcohol Use Standard Drinks/Week Comments Yes 1 (1 standard drink = 0.6 oz pur e alcohol) social [facility] Utilities Answer Date Recorded In the past 12 months has [employer], gas, oil, or water [employer] threatened to shut off services in your [...] week 05/29/2023 How often do you attend [facility] or orthodoxy services? 1 to 4 times per year 05/29/2023 Do you belong to any clubs o r organizations such as pentecostalism groups, unions, fraternal or athletic groups, or [...] Date Recorded PHQ-2 Total Score 0 06/03/2023 [facility] of Occupat ional Health - [...] PM EST documented as of this encounter Miscellaneous Notes * Telephone Encounter - Shimon Booth PA-C - 07/24/2023 8:22 PM EDT Clarified rx with pharmacy documented in this encounter Plan of Treatment Upcoming Encounters Date Type Department Care Team (Late st Contact Info) Description 06/07/2025 8:00 AM EDT Office Visit [address] [phone] Fior Vera APRN [address] [place] [address] documented as of this encounter Visit Diagnoses Diagnosis Acute bacterial conjunctivitis of right eye documented in this encounter Care Teams [employer] Truck Driver Relationship Specialty Start Date End Date Fior Vera APRN [address] [place] [id number] PCP - General Family Medicine 03/11/20 Fior Vera APRN [address] [address] PCP - [place] Commercial Attributed 07/24/23 02/22/24 Fior Vera APRN [address] [address] PCP - [place] Commercial Attributed 03/25/24 documented as of this encounter
== END 2024-07-09 12:30 | disposition home or self-care (01) ==
LOC: HO.MAMMO 12:29
PROVIDERS: PCP Nurse Practitioner Acute Care; Visit Provider Nurse Practitioner Acute Care
DX: R22.31 Localized swelling, mass and lump, right upper limb (principal)
CPT/HCPCS: 76642

== ENCOUNTER → 2024-07-09 13:00 | Outpatient (BNV) | payer BC, SELFPAY | PROVIDERS: PCP Nurse Practitioner Acute Care; Visit Provider Internal Medicine | DX: N63.31 Unspecified lump in axillary tail of the right breast (principal) | CPT/HCPCS: 76882 ==

== ENCOUNTER 2025-03-02 10:12 | Outpatient (REF) | payer BC, SELFPAY ==
--- NOTE | ~2025-03-02 | MM_ITS ---
EXAMINATION: MM SCREENING DIGITAL BREAST TOMOSYNTHESIS, BILATERAL CLINICAL INFORMATION: Screening. Asymptomatic. COMPARISON: Comparison made to multiple prior, most recent February 25, 2024, and most remote February 13, 2022. TECHNIQUE: Digital breast tomosynthesis is performed in mediolateral oblique and craniocaudal views along with computer-aided detection (CAD). Synthesized 2D images are generated from the tomosynthesis. FINDINGS: BREAST COMPOSITION: The breasts are heterogeneously dense, which may obscure small masses. RIGHT BREAST: Interval change in size and number of oval/round masses likely representing waxing and waning fibrocystic changes. No significant masses, suspicious calcifications or other abnormalities are seen. LEFT BREAST: Asymmetry on the CC view in the slightly medial breast posterior depth is similar to 2022. No significant masses, suspicious calcifications or other abnormalities are seen. MM/MM tomosynthesis screening BI IMPRESSION: BILATERAL BREASTS: Benign, no mammographic evidence of malignancy. Normal interval follow-up is recommended in 12 months. ASSESSMENT: BI-RADS: Category 2: Benign RECOMMENDATION: Routine annual mammography screening. FOLLOW-UP: 1 year F/U This examination should not preclude the clinical evaluation of a suspicious palpable abnormality. This patient's information was entered into a reminder system with a target due date for their next mammogram. Electronically signed by: Jose Angel Goodson MD 03/03/2025 04:56 PM [facility]
== END 2025-03-02 10:13 | disposition home or self-care (01) ==
LOC: HO.MAMMO 10:12
PROVIDERS: PCP Nurse Practitioner Acute Care; Visit Provider Nurse Practitioner Acute Care
DX: Z12.31 Encounter for screening mammogram for malignant neoplasm of breast (principal)
CPT/HCPCS: 77063; 77067

== ENCOUNTER → 2025-03-02 10:30 | Outpatient (BNV) | payer BC, SELFPAY | PROVIDERS: PCP Nurse Practitioner Acute Care; Visit Provider Radiology Body Imaging | DX: Z12.31 Encounter for screening mammogram for malignant neoplasm of breast (principal) | CPT/HCPCS: 77063; 77067 ==